=== PATIENT | female | born 1970 | race Caucasian/White ===

== ENCOUNTER 2019-05-25 08:05 | Emergency (ER) | payer OTHER ==
[2019-05-25 08:12] VITALS: BP 134/79; PULSE 69; TEMP 98.8; BMI 28.9
[2019-05-25] MEDS ORDERED: FLUCONAZOLE 50 MG TABLET PO ONE (09:08)
--- NOTE | 2019-05-25 09:08 | PDOC ---
History of Present Illness - General Chief Complaint: Vaginal Sxs Stated Complaint: VAGINAL DISCOMFORT Time Seen by Provider: 05/25/19 08:39 History Source: Patient Exam Limitations: No Limitations (foul vag odor X 3 days) Past History - Travel Traveled outside of the country in the last 30 days: No Close contact w/someone who was outside of country & ill: No - Past Medical History Allergies/Adverse Reactions: Allergies Allergy/AdvReac Type Severity Reaction Status Date / Time No Known Allergies Allergy Verified 05/25/19 08:08 Home Medications: Ambulatory Orders Fluconazole 150 mg PO ACDIN 1 Days #1 tablet 05/25/19 metroNIDAZOLE [Flagyl -] 500 mg PO DAILY #14 tablet 05/25/19 COPD: No - Psycho Social/Smoking Cessation Hx Smoking Status: No Smoking History: Never smoked Have you smoked in the past 12 months: No Number of Cigarettes Smoked Daily: 0 Cigars Per Day: 0 Hx Alcohol Use: No Drug/Substance Use Hx: No Review of Systems - Review of Systems Constitutional: No: Chills, Fever ABD/GI: No: Nausea, Vomiting : Yes: Discharge. No: Burning, Dysuria, Frequency, Flank Pain, Hematuria, Incontinence, Pain, Urgency Musculoskeletal: No: Back Pain *Physical Exam - Vital Signs Last Vital Signs Temp Pulse Resp BP Pulse Ox 98.8 F 69 18 134/79 98 05/25/19 08:09 05/25/19 08:09 05/25/19 08:09 05/25/19 08:09 05/25/19 08:09 - Physical Exam General Appearance: Yes: Nourished Respiratory/Chest: positive: Lungs Clear, Normal Breath Sounds Cardiovascular: positive: Regular Rhythm, Regular Rate, S1, S2 Female Pelvic Exam: positive: discharge (yellowish malodorous disharge noted, + inflamed labia. + stitches in also noted. no CMT/adenexa tenderness) Gastrointestinal/Abdominal: positive: Normal Bowel Sounds, Soft Neurologic: positive: roving winder II-XII NML intact, Fully Oriented, Alert, Normal Mood/ Affect, Normal Response, Motor Strength 5/5 Medical Decision Making - Medical Decision Making 05/25/19 09:04 48 years old female with recent prolapse uterine prolapse surgery a month ago at [facility]. Patient presents with foul vaginal order and vaginal itching since . LMP was 11. She denies any pelvic pain nausea vomiting fever, chills, or any STI concern. exam consistent with inflamed labia and my order was creamy discharge. UA and urine culture sent Vaginal cultures also sent as well suspect bacterial vaginosis given recent instrumentation and symptoms. Rx for possible underlying a yeast and Flagyl sent to pharmacy patient was advised to follow-up with [facility] as an outpatient Discharge - Discharge Information Problems reviewed: Yes Clinical Impression/Diagnosis: Vaginal bleeding Condition: Stable Disposition: HOME - Admission No - Additional Discharge Information Prescriptions: Fluconazole 150 mg PO ACDIN 1 Days #1 tablet metroNIDAZOLE [Flagyl -] 500 mg PO DAILY #14 tablet Prescription Drug Monitoring Program (I-STOP) results: I-STOP not reviewed - Follow up/Referral - Patient Discharge Instructions Patient Printed Discharge Instructions: DI for Bacterial Vaginosis, DI for Vaginal Itching Additional Instructions: You were seen for vaginal infection today. Please take antibiotic as prescribed do not drink alcohol while taking the antibiotic course. Follow-up with your [facility] doctor for further evaluation Your urine test today was within normal limit, a culture was sent.for further evaluation if there are any positive findings he will be contacted for treatment. Return to the emergency room if worsening symptoms occur - Post Discharge Activity
[2019-05-25] MEDS ORDERED: FLUCONAZOLE 100 MG TABLET (UD) ONE (09:13)
[2019-05-25 10:28] LABS: URINE APPEARANCE Clear; URINE BILIRUBIN Negative (NEGATIVE); URINE COLOR Yellow; URINE GLUCOSE (UA) Negative (NEGATIVE); URINE KETONE Negative (NEGATIVE); URINE LEUK ESTERASE 1+ (NEGATIVE); URINE NITRITE Negative (NEGATIVE); URINE PROTEIN Negative (NEGATIVE); URINE UROBILINOGEN 0.2 mg/dL (0.2-1.0)
== END 2019-05-25 10:40 | disposition home or self-care (01) ==
LOC: JERFT 08:05
DX: N76.0 Acute vaginitis (principal); B96.89 Other specified bacterial agents as the cause of diseases classified elsewhere; N76.2 Acute vulvitis; Z98.890 Other specified postprocedural states
CPT/HCPCS: 36415; 81003; 84703; 87086; 87491; 87591; 99283-25

== ENCOUNTER 2019-07-03 16:18 | Emergency (ER) | payer OTHER ==
--- NOTE | 2019-07-03 16:36 | PDOC ---
Rapid Medical Evaluation Time Seen by Provider: 07/03/19 16:32 Medical Evaluation: Allergies Allergy/AdvReac Type Severity Reaction Status Date / Time No Known Allergies Allergy Verified 05/25/19 08:08 07/03/19 16:35 I have performed a brief in-person evaluation of this patient. The patient presents with a chief complaint of: Foul smelling vag discharge and dx w/ trichomonas by [facility] today. Given rx for flagyl but states only 4 tabs sent to pharmacy. Here to be re-tested before taking meds as is unsure why she has a STD when her is telling her that he has not been sexually active w/ anyone else per pt. No abd pain, dysuria, n/v/f/c. Pt was seen here for foul smelling dc 06/04 and given flagyl for presumed BV but states she was only told to take 1 tab daily x 14 days instead of BID x 7 days as is usual dose. Did complete meds and states sxs did resolve after that but returned this month w/ her menses. Pertinent physical exam findings:stable I have ordered the following:genital cx,ua The patient will proceed to the ED for further evaluation. Discharge Disposition - Diagnosis Foul smelling vaginal discharge - Referrals - Patient Instructions - Post Discharge Activity
[2019-07-03 17:01] VITALS: BP 158/93; PULSE 108; TEMP 97.7; BMI 30.2
--- NOTE | 2019-07-03 21:09 | PDOC ---
History of Present Illness - General Chief Complaint: Vaginal Sxs Stated Complaint: VAGINAL PROBLEM Time Seen by Provider: 07/03/19 16:32 History Source: Patient Exam Limitations: No Limitations Past History - Past Medical History Allergies/Adverse Reactions: Allergies Allergy/AdvReac Type Severity Reaction Status Date / Time No Known Allergies Allergy Verified 05/25/19 08:08 Home Medications: Ambulatory Orders Fluconazole 150 mg PO ACDIN 1 Days #1 tablet 05/25/19 metroNIDAZOLE [Flagyl -] 500 mg PO DAILY #14 tablet 05/25/19 COPD: No - Immunization History Immunization Up to Date: Yes - Psycho Social/Smoking Cessation Hx Smoking Status: No Smoking History: Never smoked Have you smoked in the past 12 months: No Number of Cigarettes Smoked Daily: 0 Cigars Per Day: 0 Hx Alcohol Use: No Drug/Substance Use Hx: No *Physical Exam - Vital Signs Last Vital Signs Temp Pulse Resp BP Pulse Ox 97.7 F 108 H 18 158/93 98 07/03/19 16:37 07/03/19 16:37 07/03/19 16:37 07/03/19 16:37 07/03/19 16:37 - Physical Exam General Appearance: No: Apparent Distress Respiratory/Chest: positive: Lungs Clear, Normal Breath Sounds. negative: Respiratory Distress Cardiovascular: positive: Regular Rhythm, Regular Rate, S1, S2. negative: Murmur Female Pelvic Exam: positive: normal external exam. negative: CMT, discharge, adnexal tenderness Gastrointestinal/Abdominal: positive: Normal Bowel Sounds, Soft. negative: Tender, Distended, Guarding, Rebound Neurologic: positive: Alert ED Treatment Course - ADDITIONAL ORDERS Additional order review: Laboratory Results 07/03/19 20:30 Urine HCG, Qual Negative Medical Decision Making - Medical Decision Making 48 y/o F with hx of B/L tubal ligation, bladder lift 04/2019 presents with noting slight odor when her menstrual cycle started on 06/17. She saw her OB on 07/01 who did a swab and got results today that she was positive for trichomonas. Patient was concerned as that is an STD and she is only sexually active with her who denies being sexually active with anyone else. Patient wants retesting for trich. Patient mentions last month she was seen here for similar sxs; at that she was treated with Fluconazole and Flagyl. Denies vaginal discharge/itching, fever, sob, cp, abd pain, n/v, urinary sxs. UCG negative G/C/trich testing sent Given currently asymptomatic, patient prefers to defer tx until results come back 07/03/19 21:04 Discharge - Discharge Information Problems reviewed: Yes Clinical Impression/Diagnosis: Screen for STD (sexually transmitted disease) Condition: Stable Disposition: HOME - Admission No - Follow up/Referral - Patient Discharge Instructions Additional Instructions: Thank you for choosing [facility]. It was a pleasure taking care of you. Refrain from sexual intercourse x 1 week You will called back regarding results Return to the Emergency Department if your symptoms worsen or persist or have other concerning symptoms. - Post Discharge Activity
== END 2019-07-03 21:18 | disposition home or self-care (01) ==
LOC: JERFT 16:18
DX: Z11.3 Encounter for screening for infections with a predominantly sexual mode of transmission (principal); N89.8 Other specified noninflammatory disorders of vagina; Z87.42 Personal history of other diseases of the female genital tract; A59.8 Trichomoniasis of other sites
CPT/HCPCS: 36415; 84703; 87491; 87591; 87661; 99282-25

== ENCOUNTER 2021-06-11 16:00 | Emergency (ER) | payer OTHER ==
[2021-06-11 16:26] VITALS: BP 123/81; PULSE 85; TEMP 98.1; BMI 30.2
== END 2021-06-11 19:16 | disposition home or self-care (01) ==
LOC: JERFT 16:00
DX: R06.01 Orthopnea (principal)
CPT/HCPCS: 71046-TC-FY; 93005; 93010; 99284-25

== ENCOUNTER 2021-06-14 21:41 | Emergency (ER) | payer OTHER ==
[2021-06-14 21:52] VITALS: TEMP 98.4; BMI 30.2
[2021-06-14] MEDS ORDERED: MAG HYDROX/AL HYDROX/SIMETH -MYLANTA- ORAL SUSPENSION PO ONE (22:40)
[2021-06-14] MEDS ORDERED: FAMOTIDINE 20 MG/50 ML IVPB 20 MG/50 ML MG IVPB ONE ×2 (22:40→22:49)
[2021-06-14] MEDS ORDERED: MAG HYDROX/AL HYDROX/SIMETH 30 ML UNIT-DOSE CUP ONE (22:48)
[2021-06-14 23:18] LABS: BASO % 0.9 % (0-2.0); EOS % 1.9 % (0-4.5); HEMATOCRIT 41.2 % (32.4-45.2); HEMOGLOBIN 14.2 GM/dL (10.7-15.3); LYMPH % 40.4 % (8-40); MCH 31.2 pg (25.7-33.7); MCHC 34.4 g/dl (32.0-36.0); MEAN CELL VOLUME 90.6 fl (80-96); NEUT % 48.8 % (42.8-82.8); PLATELET COUNT 215 10^3/uL (134-434); RBC 4.54 M/mm3 (3.60-5.2); RDW 12.7 % (11.6-15.6); WHITE BLOOD COUNT 8.5 K/mm3 (4.0-10.0)
[2021-06-14 23:42] LABS: CHLORIDE 107 mmol/L (98-107); SODIUM 140 mmol/L (136-145)
[2021-06-14 23:44] LABS: ALBUMIN 4.1 g/dl (3.4-5.0); CALCIUM 9.5 mg/dL (8.5-10.1)
[2021-06-14 23:45] LABS: ANION GAP 9 MMOL/L (8-16); BLOOD UREA NITROGEN 13.2 mg/dL (7-18); CO2 24 mmol/L (21-32); GLUCOSE,RANDOM 127 mg/dL (74-106)
[2021-06-14 23:47] LABS: CREATININE 0.8 mg/dL (0.55-1.3)
[2021-06-14 23:48] LABS: SGOT/AST 48 U/L (15-37); SGPT/ALT 77 U/L (13-61)
[2021-06-14 23:49] LABS: BILIRUBIN,TOTAL 1.2 mg/dL (0.2-1); TOT PROT 8.1 g/dl (6.4-8.2)
[2021-06-14 23:50] LABS: ALK PHOS 93 U/L (45-117)
[2021-06-14 23:53] LABS: N-TERMINAL BNP 6.2 pg/ml (5-125)
[2021-06-15 02:46] VITALS: BP 119/79; PULSE 92
== END 2021-06-15 02:46 | disposition home or self-care (01) ==
LOC: JER 21:41
PROC: 3E033GC Introduction of Other Therapeutic Substance into Peripheral Vein, Percutaneous Approach (ICD-10-PCS; principal; 2021-06-14)
DX: R09.89 Other specified symptoms and signs involving the circulatory and respiratory systems (principal); K21.9 Gastro-esophageal reflux disease without esophagitis
CPT/HCPCS: 36415; 70491-TC; 71046-TC-FY; 80053; 82550; 83880; 84439; 84443; 84484; 84703; 85025; 93005; 93010; 96374; 99285-25; Q9967